=== PATIENT | female | born 1955 | race Caucasian/White ===

== ENCOUNTER 2018-10-27 11:01 | Inpatient (IN) | payer OTHER ==
[~2018-10-27] VITALS: Ht 157.5 cm; Wt 88.7 kg
[2019-01-30] VITALS (23 sets, daily range): BP systolic 103–164; BP diastolic 45–98; PULSE 70–96; RESP 11–24; Ht 157.5 cm; Wt 88.7 kg
[2019-01-30] MEDS ORDERED: RANI150T5 PO (12:06)
[2019-01-30] MEDS ORDERED: OMEP40CA6 PO (12:06)
[2019-01-30] MEDS ORDERED: ZOLP5TAB7 PO (12:06)
[2019-01-30] MEDS ORDERED: LISI-471 PO (12:07)
[2019-01-30] MEDS ORDERED: LATA2.5D2 BOTH EYES (12:07)
--- NOTE | 2019-01-30 12:57 | HPN ---
Date/Time of Note Date/Time of Note DATE: 01/30/19 TIME: 12:56 Interval H&P Admission Note Pt. seen H&P reviewed: No system changes CINTHIA SCOTT MD Jan 30, 2019 12:57
[2019-01-30] MEDS ORDERED: NEOMYC/POLYMYX/BACIT 30 GM OINT ONE (13:05)
[2019-01-30] MEDS ORDERED: POLYMYXIN/BACITRACIN 1L IRRIG ONE (13:05)
[2019-01-30] MEDS ORDERED: MIDAZOLAM 1 MG/ML 2 ML INJ ONE (13:23)
[2019-01-30] MEDS ORDERED: morphine SULFATE/PF (10 MG/10 ML) INJ ONE (13:23)
[2019-01-30] MEDS ORDERED: ROPIVACAINE 0.5 % 30 ML VIAL ONE (13:23)
[2019-01-30] MEDS ORDERED: TRANEXAMIC ACID 1GM/100ML(PMX) 200 ML ONE (13:23)
[2019-01-30] MEDS ORDERED: ROCURONIUM 50 MG INJ ONE (13:23)
[2019-01-30] MEDS ORDERED: PROPOFOL 20 ML ONE (13:23)
[2019-01-30] MEDS ORDERED: CEFAZOLIN 1 GM INJ ONE (13:23)
[2019-01-30] MEDS ORDERED: TRANEXAMIC ACID 1GM/100ML(PMX) 100 ML ONE (13:28)
[2019-01-30] MEDS ORDERED: DOCUSATE SODIUM 100 MG CAP PO ONE (13:30)
[2019-01-30] MEDS ORDERED: NALOXONE (0.4 MG/ML) INJ IV PRN ×2 (13:30→15:00)
[2019-01-30] MEDS ORDERED: NACL 0.9% 3 ML SYG IV SCH (13:30)
[2019-01-30] MEDS ORDERED: NA PHOSPHATE/BIPHOS 133 ML ENEMA PR PRN (13:30)
[2019-01-30] MEDS ORDERED: SENNA/DOCUSATE NA (8.6MG/50MG) TAB PO PRN (13:30)
[2019-01-30] MEDS ORDERED: TRANEXAMIC ACID 1GM/100ML(PMX) 100 ML IV ONE (13:30)
[2019-01-30] MEDS ORDERED: BISACODYL 10 MG SUPP PR PRN (13:30)
[2019-01-30] MEDS ORDERED: SEVOFLURANE 15 MIN ONE (13:30)
[2019-01-30] MEDS ORDERED: MAGNESIUM HYDROXIDE 30ML CUP PO PRN (13:30)
--- NOTE | 2019-01-30 13:30 | PREAC ---
Date/Time of Note Date/Time of Note DATE: 01/30/19 TIME: 13:28 Anesthesia Eval and Record Evaluation Time Pre-Procedure Interview DATE: 01/30/19 TIME: 13:28 Age 63 Sex female NPO: 8 hrs Preoperative diagnosis Left Knee OA Planned procedure Left Total Knee Arthroplasty Past Medical History Past Medical History: Includes Cardio: HTN Neuro: Other (Glaucoma) Musculoskeletal: Osteoarthritis GI: GERD Surgery & Anesthesia Issues No known issue Meds Anticoagulation: No Beta Bruno within 24 hr: No Reason Beta Bruno not given: Pt. not on B-Bruno Reported Medications Lisinopril* (Lisinopril*) 20 Mg Tablet, 20 MG PO DAILY, #30 TAB 01/30/19 Latanoprost (Latanoprost) 2.5 Ml Drops, 1 DROP BOTH EYES QHS, #1 BOTTLE 01/30/19 Omeprazole* (Omeprazole*) 40 Mg Capsule.dr, 40 MG PO DAILY, #30 CAP 01/30/19 Zolpidem Tartrate* (Zolpidem Tartrate*) 5 Mg Tablet, 5 MG PO QHS PRN for INSOMNIA, #30 TAB 01/30/19 Ranitidine Hcl* (Ranitidine Hcl*) 150 Mg Tablet, 150 MG PO Q12, #60 TAB 01/30/19 Discontinued Reported Medications [Ibuprofen] No Conflict Check 10/03/18 [Omeprazole] No Conflict Check 10/03/18 Current Medications Cefazolin Sodium 50 ml @ 100 mls/hr PRE-OP ONCE IVPB ; Start 01/30/19 at 13:45; Stop 01/30/19 at 14:14 Lactated Ringer's 1,000 ml @ 20 mls/hr Q24H IV ; Start 01/30/19 at 13:30 Tranexamic Acid 100 ml @ 200 mls/hr PRE-OP ONCE IV ; Start 01/30/19 at 13:30; Stop 01/30/19 at 13:59 Meds reviewed: Yes Allergies Coded Allergies: No Known Allergy (Unverified , 01/30/19) Allergies Reviewed: Yes Labs/Studies Labs Reviewed: Reviewed by anesthesiologist test: N/A Studies: ECG (n/a), CXR (n/a) Pre-procedure Exam Last vitals Vital Signs Date Temp Pulse Resp B/P (MAP) Pulse Ox O2 O2 Flow FiO2 Time Delivery Rate 01/30/19 97.8 93 16 164/88 96 Room Air 13:03 (113) Airway: Adequate mouth opening, Adequate thyromental dist Mallampati: Mallampati II Teeth: Normal Lung: Normal Heart: Normal ASA Physical Status ASA physical status: 3 Emergency: None Planned Anesthetic General/MAC: ETT, LMA Nerve block: Femoral (left), Sciatic Planned Pain Management Sub-arachniod narcotics, Single shot nerve block, Parenteral pain med Pre-operative Attestations Prior to commencing anesthesia and surgery, the patient was re-evaluated, there was verification of: *The patient's identity *The results of appropriate recent lab work and preoperative vital signs *The above evaluation not changing prior to induction *Anesthetic plan, risk benefits, alternative and complications discussed with patient/family; questions answered; patient/family understands, accepts and wishes to proceed. SJ JUNIOR MD Jan 30, 2019 13:30
--- NOTE | 2019-01-30 13:33 | OPR ---
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
[2019-01-30] MEDS ORDERED: CEFAZOLIN 1 GM/50 ML (PMX) 50 ML IVPB ONE (13:45)
[2019-01-30] MEDS ORDERED: PHENYLephrine (100 MCG/ML) 10ML SYG ONE (14:17)
[2019-01-30] MEDS ORDERED: METOCLOPRAMIDE 10 MG INJ ONE (14:17)
[2019-01-30] MEDS ORDERED: KETOROLAC 30 MG INJ ONE (14:17)
[2019-01-30] MEDS ORDERED: DEXAMETHASONE 4 MG/ML 5 ML INJ ONE (14:17)
[2019-01-30] MEDS ORDERED: ONDANSETRON 4 MG INJ ONE (14:17)
[2019-01-30] MEDS ORDERED: METOCLOPRAMIDE 10 MG INJ IV PRN (15:00)
[2019-01-30] MEDS ORDERED: HYDROmorphONE 0.5 MG/0.5 ML SYG IV PRN ×2 (15:00)
[2019-01-30] MEDS ORDERED: NALBUPHINE HCL (10 MG/1 ML) INJ IV PRN (15:00)
[2019-01-30] MEDS ORDERED: ACETAMINOPHEN 500 MG TAB PO PRN (15:00)
[2019-01-30] MEDS ORDERED: HYDROmorphONE 1 MG/5 ML IV SYRINGE IV PRN ×3 (15:00)
[2019-01-30] MEDS ORDERED: MEPERIDINE 25 MG INJ IV PRN (15:00)
[2019-01-30] MEDS ORDERED: OXYCODONE/ACETAMINOPHEN (5/325) TAB PO PRN (15:00)
[2019-01-30] MEDS ORDERED: ONDANSETRON 4 MG INJ IV PRN ×2 (15:00)
[2019-01-30] MEDS ORDERED: EPHEDrine 25 MG/5 ML SYG IV PRN (15:00)
[2019-01-30] MEDS ORDERED: DIPHENHYDRAMINE 50 MG INJ IV PRN ×2 (15:00)
[2019-01-30] MEDS ORDERED: morphine 2 MG INJ IV PRN ×2 (15:00)
[2019-01-30] MEDS ORDERED: LABETALOL HCL 20MG INJ IV PRN (15:00)
[2019-01-30] MEDS ORDERED: FENTAnyl 50 MCG/ML VIAL IV PRN ×3 (15:00)
[2019-01-30] MEDS ORDERED: hydrALAzine 20 MG INJ IV PRN (15:00)
[2019-01-30] MEDS ORDERED: NEOSTIGMINE 3 MG/3 ML SYRINGE ONE (15:16)
[2019-01-30] MEDS ORDERED: GLYCOPYRROLATE 0.4 MG INJ ONE (15:16)
--- NOTE | 2019-01-30 15:34 | PAC ---
Date/Time of Note Date/Time of Note DATE: 01/30/19 TIME: 15:34 Post-Anesthesia Notes Post-Anesthesia Note Last documented vital signs Vital Signs Date Temp Pulse Resp B/P (MAP) Pulse Ox O2 O2 Flow FiO2 Time Delivery Rate 01/30/19 98.4 93 16 164/88 96 Room Air 15:33 (113) Activity: WNL Respiratory function: WNL Cardiovascular function: WNL Mental status: Baseline Pain reasonably controlled: Yes Hydration appropriate: Yes Nausea/Vomiting absent: Yes SJ JUNIOR MD Jan 30, 2019 15:34
[2019-01-30] MEDS: LACTATED RINGER'S 1,000 ML IV SCH (17:24)
--- NOTE | 2019-01-30 21:25 | OPR ---
DATE OF OPERATION: 01/30/2019 SURGEON: Remy Dasilva MD ANESTHESIA: Spinal, general and ____. PREOPERATIVE DIAGNOSIS: Left knee osteoarthritis. POSTOPERATIVE DIAGNOSIS: Left knee osteoarthritis. PROCEDURE PERFORMED: Left total knee replacement arthroplasty using Yousif [employer] Nephew components post erior stabilized size 5 femur, size 3 tibia, 23 mm patellar button and 13 mm liner. ESTIMATED BLOOD LOSS: 200 mL TOURNIQUET TIME: 45 minutes. COMPLICATIONS: None. HISTORY: The patient is a 63-year-old female with longstanding complaints of pain in the left knee. X-ray does show severe arthritis, [id number] deformity was in the medial compartment with varus de formity. Pain has persisted despite conservative measures including medications, physical therapy an d injections. Risks and complications reviewed, but not limited to loosening, infection, revision currie rgery. PROCEDURE: The patient was taken to the operating room and a spinal block given by anesthesia follow ed by adductor block and general anesthesia. Tourniquet applied to the left thigh, left leg prepped and draped in usual sterile manner, exsanguinated with Esmarch bandage. Tourniquet inflated to 300 m mHg. Anterior incision made, medial arthrotomy. Severe arthritis noted in the medial compartment wi th [id number] deformity and large osteophytes which were removed. Patella prepared for a 23 mm but ton. Femur cut through an intramedullary guide for the size 5 posterior stabilized. Tibia was cut t o a size 3. 9, 11, 13 mm liners were placed and 13 mm provided stable range of motion with no varus or valgus instability. Full extension and flexion of 125 degrees. ____ components were brought in, cement mixed and inserted satisfactorily. Excess cement removed. Tourniquet deflated. Minimal blee ding was noted. Tranexamic acid was administered. Preoperatively, patient also received 2 grams of Kefzol. Hemovac drain placed into the joint. Arthrotomy closed with #2 FiberWire suture and #1 Vicr yl sutures for the subcutaneous layer. The skin closed with shravan. Compression bandage applied. Anesthetic reversed. The patient taken to recovery in stable condition. Dictated By: REMY DAUGHERTY/ESTEBAN Conf#: [id number] DID#: [id number]
[2019-01-31] VITALS (8 sets, daily range): BP systolic 99–132; BP diastolic 52–65; PULSE 73–94; RESP 14–18
[2019-01-31] MEDS: HYDROCODONE/APAP (5/325) TAB PO PRN ×2 (04:16→09:02)
[2019-01-31] MEDS: DOCUSATE SODIUM 100 MG CAP PO SCH ×2 (09:53→21:03)
[2019-01-31] MEDS: LACTATED RINGER'S 1,000 ML IV SCH (13:30)
[2019-01-31] MEDS: HYDROCODONE/APAP (10/325) TAB PO PRN ×2 (16:09→22:56)
[2019-01-31] MEDS: KETOROLAC 30 MG INJ IV SCH (16:10)
[2019-01-31] MEDS: morphine 2 MG INJ IV PRN (19:06)
[2019-02-01] MEDS: morphine 2 MG INJ IV PRN ×3 (00:02→11:06)
[2019-02-01 02:00] VITALS: BP 127/60; PULSE 76; RESP 18
[2019-02-01] MEDS: PANTOPRAZOLE (EC) 40 MG TAB PO SCH (06:42)
[2019-02-01 07:59] VITALS: BP 149/65; PULSE 95; RESP 18
[2019-02-01] MEDS: DOCUSATE SODIUM 100 MG CAP PO SCH ×2 (08:26→22:00)
[2019-02-01] MEDS: HYDROCODONE/APAP (10/325) TAB PO PRN ×3 (08:27→19:42)
[2019-02-01] MEDS: KETOROLAC 30 MG INJ IV SCH (11:36)
[2019-02-01] MEDS ORDERED: KETOROLAC 30 MG INJ IV STA (11:39)
[2019-02-01] MEDS: GABAPENTIN 300 MG CAP PO SCH ×2 (12:29→18:49)
[2019-02-01] MEDS: LACTATED RINGER'S 1,000 ML IV SCH (13:30)
[2019-02-01 14:23] VITALS: BP 101/53; PULSE 88; RESP 18
[2019-02-01 20:33] VITALS: BP 102/66; PULSE 85; RESP 20
[2019-02-01] MEDS: ASPIRIN (EC) 325 MG TAB PO SCH (22:00)
[2019-02-02] MEDS: GABAPENTIN 300 MG CAP PO SCH ×2 (00:53→06:36)
[2019-02-02 02:43] VITALS: BP 128/53; PULSE 80; RESP 17
[2019-02-02] MEDS ORDERED: ONDANSETRON 4 MG INJ IV PRN (03:00)
[2019-02-02] MEDS: PANTOPRAZOLE (EC) 40 MG TAB PO SCH (06:36)
[2019-02-02 07:40] VITALS: BP 121/62; PULSE 72; RESP 19
[2019-02-02] MEDS: HYDROCODONE/APAP (10/325) TAB PO PRN ×3 (09:25→18:21)
[2019-02-02] MEDS: DOCUSATE SODIUM 100 MG CAP PO SCH (09:26)
[2019-02-02] MEDS: ASPIRIN (EC) 325 MG TAB PO SCH (09:26)
--- NOTE | 2019-02-02 12:21 | HP ---
Date/Time of Note Date/Time of Note DATE: 02/02/19 TIME: 12:17 Assessment/Plan VTE Prophylaxis Risk score (from Ns)>0 risk: 8 SCD applied (from [facility]): Yes Pharmacological prophylaxis: NA/contraindicated Pharm contraindication: surgical contra Lines/Catheters IV Catheter Type (from Nrsg): Peripheral IV Urinary Cath still in place: No Assessment/Plan Hospital Course 1. OA left knee 2. S.p left knee arthroplasty. 3. Hypertension 4. Obesity 5. Anmia 6. s/p hysterectomy, S/P left ear surgery Assessment/Plan -Pt is post op day 3 with physical therapy -Pain is controlled -Discharged today Consequent appointment in Dr. Dasilva office on Tuesday Result Diagram: 02/02/1942802/02/19428 Results 24hrs Laboratory Tests Test 02/02/19 04:29 White Blood Count 10.0 Red Blood Count 3.63 L Hemoglobin 10.7 L Hematocrit 32.1 L Mean Corpuscular Volume 88.4 Mean Corpuscular Hemoglobin 29.5 Mean Corpuscular Hemoglobin Concent 33.3 Red Cell Distribution Width 13.2 Platelet Count 240 Mean Platelet Volume 10.3 Immature Granulocytes % 0.700 H Neutrophils % 65.8 Lymphocytes % 23.3 Monocytes % 8.1 Eosinophils % 1.5 Basophils % 0.6 Nucleated Red Blood Cells % 0.0 Immature Granulocytes # 0.070 H Neutrophils # 6.6 Lymphocytes # 2.3 Monocytes # 0.8 Eosinophils # 0.2 Basophils # 0.1 Nucleated Red Blood Cells # 0.0 Sodium Level 137 Potassium Level 4.1 Chloride Level 103 Carbon Dioxide Level 29 Anion Gap 5 Blood Urea Nitrogen 17 Creatinine 0.64 Est Glomerular Filtrat Rate mL/min > 60 Glucose Level 126 Calcium Level 8.5 HPI/ROS Admit Date/Time Admit Date/Time Jan 31, 2019 at 08:19 Hx of Present Illness This 63-year-old female with history of left knee osteoarthritis, obesity, hypertension was admitted for elective surgery on left knee. Dr. Dasilva performed left knee arthroplasty 01/30/2019. Today is postoperative day #3. Patient reported significant pain in the left knee. She has ice machine attached to her left knee. He is on stronger pain medication including [place] and gabapentin 4 times a day. Patient is ambulating with physical therapy and frontwheel walker. She has on appropriate medical equipment at home.. She reported no nausea no vomiting. Surgeon discharged her today PMH/Family/Social Past Medical History Medications Current Medications Lactated Ringer's 1,000 ml @ 20 mls/hr Q24H IV Last administered on 01/30/19 17:24; Admin Dose 20 MLS/HR; Start 01/30/19 at 13:30 IV Flush (NS 3 ml) 3 ml PER PROTOCOL IV Last administered on 02/01/19 19:42; Admin Dose 3 ML; Start 01/30/19 at 13:30 Pantoprazole (Protonix Tab) 40 mg DAILY@06 PO Last administered on 02/02/19 06:36; Admin Dose 40 MG; Start 02/01/19 at 06:00 Docusate Sodium (Colace) 200 mg BID PO Last administered on 02/02/19 09:26; Admin Dose 200 MG; Start 01/31/19 at 09:00; Stop 02/03/19 at 08:59 Simethicone (Mylicon) 80 mg TID PRN PO .GAS; Start 01/30/19 at 13:30 Senna/Docusate Sodium (Senokot-S) 2 tab BID PRN PO .CONSTIPATION; Start 01/30/19 at 13:30 Magnesium Hydroxide (Milk Of Mag) 30 ml HS PRN PO .CONSTIPATION; Start 01/30/19 at 13:30 Bisacodyl (Dulcolax Supp) 10 mg DAILY PRN CA .CONSTIPATION; Start 01/30/19 at 13:30 Sodium Biphosphate/ Sodium Phosphate (Fleet Enema) 133 ml DAILY PRN CA .CONSTIPATION; Start 01/30/19 at 13:30 Naloxone HCl (Narcan) 0.2 mg Q2M PRN IV .RESP RATE; Start 01/30/19 at 13:30 Acetaminophen/ Hydrocodone Bitart (Buchanan (10/325)) 1 tab Q4H PRN PO MODERATE PAIN LEVEL 4-6 Last administered on 02/02/19 09:25; Admin Dose 1 TAB; Start 01/31/19 at 16:00 Morphine Sulfate (morphine) 2 mg Q4H PRN IV SEVERE PAIN LEVEL 7-10 Last administered on 02/01/19 11:06; Admin Dose 2 MG; Start 01/31/19 at 16:00 Aspirin (Ecotrin) 325 mg BID PO Last administered on 02/02/19at 09:26; Admin Dose 325 MG; Start 02/01/19 at 21:00 Ondansetron HCl (Zofran Inj) 4 mg Q6H PRN IV NAUSEA AND/OR VOMITING Last administered on 02/02/19at 03:17; Admin Dose 4 MG; Start 02/02/19 at 03:00 Gabapentin (Neurontin) 300 mg TID PO ; Start 02/02/19 at 13:00 Coded Allergies: No Known Allergy (Unverified , 01/30/19) Past Surgical History Past Surgical Hx: other (hysterctomy, left ear surgery) Social History Smoking Status: Never smoker Exam/Review of Systems Vital Signs Vitals Vital Signs Date Temp Pulse Resp B/P (MAP) Pulse Ox O2 O2 Flow FiO2 Time Delivery Rate 02/02/19 98.2 72 19 121/62 99 07:40 (81) 02/02/19 Room Air 02:43 01/31/19 2.0 03:05 Intake and Output 02/01/19 02/01/19 02/02/19 1515:00 23:00 07:00 IntakeIntake Total 980 ml 420 ml 700 ml OutputOutput Total 2000 ml 900 ml 600 ml BalanceBalance -1020 ml -480 ml 100 ml Exam Constitutional: alert, oriented Neck: supple Respiratory: clear to auscultation Cardiovascular: regular rate and rhythm Gastrointestinal: soft Musculoskeletal: muscle weakness (left leg), swelling (left knee) ELIJAH BRADY Feb 02, 2019 12:21
--- NOTE | 2019-02-02 12:27 | DS ---
Date/Time of Note Date/Time of Note DATE: 02/02/19 TIME: 12:24 Discharge Summary Admission/Discharge Info Admit Date/Time Jan 31, 2019 at 08:19 Discharge Date/Time Discharge Diagnosis Post left knee arthroplasty Patient Condition: Stable Consults Orthopedic surgeon Dr. Dasilva Procedures Left knee arthroplasty Hospital Course This 63-year-old female with history of left knee osteoarthritis, seasonal allergies, insomnia, obesity, hypertension was admitted for elective surgery on left knee. Dr. Dasilva performed left knee arthroplasty 01/30/2019. Impressions: 1. OA left knee 2. S.p left knee arthroplasty. 3. Hypertension 4. Obesity 5. Anemia 6. s/p hysterectomy, 7. S/P left ear surgery Today is postoperative day #3. Patient reported significant pain in the left knee. She has ice machine attached to her left knee. He is on stronger pain medication including [place] and gabapentin 4 times a day. Patient is ambulating with physical therapy and front wheel walker. She has on appropriate medical equipment at home.. She reported no nausea no vomiting. Surgeon discharged her today Home Meds Reported Medications Lisinopril* (Lisinopril*) 20 Mg Tablet, 20 MG PO DAILY, #30 TAB 01/30/19 Latanoprost (Latanoprost) 2.5 Ml Drops, 1 DROP BOTH EYES QHS, #1 BOTTLE 01/30/19 Omeprazole* (Omeprazole*) 40 Mg Capsule., 40 MG PO DAILY, #30 CAP 01/30/19 Zolpidem Tartrate* (Zolpidem Tartrate*) 5 Mg Tablet, 5 MG PO QHS PRN for INSOMNIA, #30 TAB 01/30/19 Ranitidine Hcl* (Ranitidine Hcl*) 150 Mg Tablet, 150 MG PO Q12, #60 TAB 01/30/19 Discontinued Reported Medications [Ibuprofen] No Conflict Check 10/03/18 [Omeprazole] No Conflict Check 10/03/18 Follow-up Plan PCP 2 weeks Orthopedic surgeon this Tuesday Primary Care Provider Not On Staff Doctor Time spent on discharge: < 30 minutes Pending Labs Laboratory Tests Test 02/02/19 04:29 White Blood Count 10.0 10^3/ul (4.8-10.8) Red Blood Count 3.63 10^6/ul (4.20-5.40) Hemoglobin 10.7 g/dl (12.0-16.0) Hematocrit 32.1 % (37.0-47.0) Mean Corpuscular Volume 88.4 fl (82.0-101.0) Mean Corpuscular Hemoglobin 29.5 pg (29.0-33.0) Mean Corpuscular Hemoglobin Concent 33.3 g/dl (32.0-37.0) Red Cell Distribution Width 13.2 % (11.5-14.5) Platelet Count 240 10^3/UL (140-415) Mean Platelet Volume 10.3 fl (7.4-10.4) Immature Granulocytes % 0.700 % (0.001-0.429) Neutrophils % 65.8 % (39.0-77.0) Lymphocytes % 23.3 % (15.0-51.0) Monocytes % 8.1 % (0.0-11.0) Eosinophils % 1.5 % (0.0-7.0) Basophils % 0.6 % (0.0-2.0) Nucleated Red Blood Cells % 0.0 /100WBC (0.0-0.0) Immature Granulocytes # 0.070 10^3/ul (0.0-0.031) Neutrophils # 6.6 10^3/ul (1.6-7.5) Lymphocytes # 2.3 10^3/ul (0.8-2.9) Monocytes # 0.8 10^3/ul (0.3-0.9) Eosinophils # 0.2 10^3/ul (0.0-0.5) Basophils # 0.1 10^3/ul (0.0-0.1) Nucleated Red Blood Cells # 0.0 10^3/ul (0.0-0.0) Sodium Level 137 mmol/L (135-144) Potassium Level 4.1 mmol/L (3.5-5.1) Chloride Level 103 mmol/L (97-110) Carbon Dioxide Level 29 mmol/L (21-31) Anion Gap 5 (5-13) Blood Urea Nitrogen 17 mg/dl (7-20) Creatinine 0.64 mg/dl (0.44-1.00) Est Glomerular Filtrat Rate mL/min > 60 mL/min (>60) Glucose Level 126 mg/dl (70-220) Calcium Level 8.5 mg/dl (8.4-10.2) ELIJAH BRADY Feb 02, 2019 12:27
--- NOTE | 2019-02-02 12:28 | PDOCDIS ---
Discharge Instructions DIAGNOSIS Discharge Diagnosis Post left knee arthroplasty CONDITION [id number] Patient Condition: [id number] Stable ACTIVITY: [id number] Activity Restrictions: [id number] Slowly Increase Activity Rest between Activity Avoid heavy lifting [id number] Bathing Restrictions: [id number] Sponge Bath FOLLOW UP/APPOINTMENTS Follow-up Plan PCP 2 weeks Orthopedic surgeon this Tuesday ELIJAH BRADY Feb 02, 2019 12:28
[2019-02-02] MEDS ORDERED: GABA300C16 PO (12:30)
[2019-02-02] MEDS ORDERED: DOCU-144 PO (12:30)
[2019-02-02] MEDS ORDERED: ASPI325T32 PO (12:30)
[2019-02-02] MEDS: LACTATED RINGER'S 1,000 ML IV SCH (12:51)
[2019-02-02] MEDS ORDERED: GABAPENTIN 300 MG CAP PO SCH (13:00)
[2019-02-02 14:51] VITALS: BP 126/58; PULSE 82; RESP 18
== END 2019-02-02 18:58 | disposition home or self-care (01) | DRG 470 ==
LOC: REC 01-30 11:23 → INTOOBSV 01-30 11:23 → MS1 01-30 17:10 → OBSVTOIN 01-31 08:19
PROVIDERS: ADMIT Specialist; ATTEND Specialist
PROC: 0SRD069 Replacement of Left Knee Joint with Oxidized Zirconium on Polyethylene Synthetic Substitute, Cemented, Open Approach (ICD-10-PCS; principal; 2019-01-30 14:00)
DX: M17.12 Unilateral primary osteoarthritis, left knee (principal); I10 Essential (primary) hypertension; K21.9 Gastro-esophageal reflux disease without esophagitis; E66.9 Obesity, unspecified; Z68.35 Body mass index [BMI] 35.0-35.9, adult; D64.9 Anemia, unspecified
CPT/HCPCS: 80048; 85025; 87086; 88304; 88311; 97110; 97116; 97161; 97530; 99217; C1713; G0378; J0690; J1100; J1200; J1885; J2175; J2250; J2270; J2274; J2370; J2405; J2710; J2765; J2795; J7120